=== PATIENT | female | born 1985 | race African-American/Black ===

== ENCOUNTER 2016-09-05 21:09 | Emergency (ER) | payer OTHER ==
[~2016-09-05] VITALS: Ht 170.2 cm; Wt 86.2 kg
--- NOTE | 2016-09-05 22:23 | NUR ---
PT PRESENTED TO THE ER WITH A C/O LLE/ INNER THIGH REDNESS, PAIN. PT STATED THAT SHE THINKS SHE HAD A [place]QU[place] BITE AND IT TURNED INTO A LARGE RED AREA. AREA IS WARM TO TOUCH.
[2016-09-05] MEDS ORDERED: ACETAMINOPHEN ES 500 MG TABLET ONE (22:40)
[2016-09-05] MEDS ORDERED: CEPHALEXIN MONOHYDRATE 500 MG CAPSULE PO ONE ×2 (22:40→23:00)
[2016-09-05] MEDS ORDERED: TDAP [DIPH/PERTUSSIS/TET] 0.5 ML VIAL IM ONE ×2 (22:40→23:00)
[2016-09-05] MEDS ORDERED: SULFAMETH/TRIMETH 800/160 MG 1 UDTAB TABLET PO ONE ×2 (22:40→23:00)
[2016-09-05 22:59] VITALS: BP 138/89
--- NOTE | 2016-09-05 22:59 | NUR ---
Patient discharged to home in stable condition. Written and verbal after care instructions given. Patient verbalizes understanding of instruction AND RX. PT AMBULATED OUT WITH A STEADY GAIT. VSS
[2016-09-05] MEDS ORDERED: ACETAMINOPHEN 325 MG TABLET PO ONE (23:00)
== END 2016-09-05 22:59 | disposition home or self-care (01) ==
LOC: ER 21:17
DX: L03.116 Cellulitis of left lower limb (principal)
CPT/HCPCS: 90715; A4606; Z7610

== ENCOUNTER 2017-08-29 18:06 | Emergency (ER) | payer OTHER ==
[~2017-08-29] VITALS: Ht 165.1 cm; Wt 70.3 kg
[2017-08-29 18:24] VITALS: BP 108/72
== END 2017-08-29 20:08 | disposition home or self-care (01) ==
LOC: ER 18:08
DX: H61.23 Impacted cerumen, bilateral (principal); J06.9 Acute upper respiratory infection, unspecified; J32.9 Chronic sinusitis, unspecified
CPT/HCPCS: A4606; Z7610

== ENCOUNTER 2018-09-27 20:34 | Emergency (ER) | payer OTHER ==
[~2018-09-27] VITALS: Ht 162.6 cm; Wt 69.9 kg
[2018-09-27 21:18] VITALS: BP 112/77
--- NOTE | 2018-09-27 21:19 | NUR ---
BIBS. C/O "HAVING A COUGH/CONGESTION" -SOB. - ACUTE DISTRESS. -N/V AOX.4
== END 2018-09-27 22:54 | disposition home or self-care (01) ==
LOC: ER 20:38
DX: J06.9 Acute upper respiratory infection, unspecified (principal); L04.0 Acute lymphadenitis of face, head and neck; R51 Headache
CPT/HCPCS: 99283; A4606

== ENCOUNTER 2019-07-04 17:52 | Emergency (ER) | payer OTHER ==
[~2019-07-04] VITALS: Ht 160 cm; Wt 68.0 kg
[2019-07-04 18:01] VITALS: BP 102/70
--- NOTE | 2019-07-04 18:05 | NUR ---
AT BEDSIDE FOR EVAL.
[2019-07-04] MEDS ORDERED: MAG HYDROX/AL HYDROX/SIMETH 30 ML UDC ONE (18:16)
[2019-07-04] MEDS ORDERED: LIDOCAINE VISCOUS 2% UD 15 ML UDC ONE (18:16)
[2019-07-04] MEDS ORDERED: FAMOTIDINE/PF INJ 20 MG/2 ML VIAL IV ONE ×2 (18:16→18:30)
[2019-07-04] MEDS ORDERED: GLUCAGON,HUMAN RECOMBINANT 1 MG/VIAL VIAL ONE (18:16)
--- NOTE | 2019-07-04 18:25 | NUR ---
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
[2019-07-04] MEDS ORDERED: LIDOCAINE VISCOUS 2% UD 15 ML UDC MM ONE (18:30)
[2019-07-04] MEDS ORDERED: MAG HYDROX/AL HYDROX/SIMETH 30 ML UDC PO ONE (18:30)
[2019-07-04] MEDS ORDERED: IV NS 0.9% 1,000 ML BAG IV ONE (18:30)
[2019-07-04] MEDS ORDERED: GLUCAGON,HUMAN RECOMBINANT 1 MG/VIAL VIAL IV ONE (18:30)
--- NOTE | 2019-07-04 19:40 | NUR ---
Patient discharged to home in stable condition. Written and verbal after care instructions given. Patient verbalizes understanding of instruction. IV removed and secured with gauze and tape. ID band removed. vs stable. No s/s of acute distress or sob noted. Pt left on foot with steady gait.
== END 2019-07-04 19:40 | disposition home or self-care (01) ==
LOC: ER 17:57
DX: R09.89 Other specified symptoms and signs involving the circulatory and respiratory systems (principal)
CPT/HCPCS: 71045; 96374; 96375; 99283; J1610; J3490; J7030